=== PATIENT | female | born 1965 | race Asian ===

== ENCOUNTER 2019-03-16 09:35 | Emergency (ER) | payer BC ==
[2019-03-16 09:41] VITALS: BP 135/90
[2019-03-16] MEDS ORDERED: METOCLOPRAMIDE HCL INJ/PF 10 MG/2 ML SDV IV ONE (10:34)
[2019-03-16] MEDS ORDERED: FENTANYL CITRATE INJ/PF 100 MCG/2 ML AMPUL IV ONE (10:34)
[2019-03-16] MEDS ORDERED: DIPHENHYDRAMINE HCL 50 MG/ML VIAL IV ONE (10:34)
--- NOTE | 2019-03-16 10:39 | ER Document Report ---
ED Headache - General Chief Complaint: Headache Stated Complaint: HEADACHE Time Seen by Provider: 03/16/19 10:19 Information source: Patient Notes: 53 year old right handed female began with gradual onset right sided headache last week. It is periorbital and throbbing and associated with nausea without vomiting. Since yesterday it has moved over to left side of head. No fever. Gradual onset headache. No fever and no tick bite. No resp symptoms. Perimenopausal. Normally otc meds help but it has not today or in the past several days. TRAVEL OUTSIDE OF THE [place] IN LAST 30 DAYS: No - HPI Patient complains to provider of: Headache Onset: Last week Onset was: Gradual. denies: Abrupt, Thunderclap Timing: Worse Quality of pain: Achy, Pressure Severity: Severe Pain Level: 4 Context: denies: CO exposure, Head injury, Meningitis exposure, Tick bite Worse/persistent since: yesterday Exacerbated by: Light, Noise, Movement Similar symptoms previously: Yes - Related Data Allergies/Adverse Reactions: No Known Allergies Allergy (Verified 03/16/19 09:43) Past Medical History - Social History Smoking Status: Never Smoker Family History: Reviewed & Not Pertinent Patient has suicidal ideation: No Patient has homicidal ideation: No Neurological Medical History: Reports: Hx Migraine Review of Systems - Review of Systems Constitutional: No symptoms reported EENT: No symptoms reported Cardiovascular: No symptoms reported Respiratory: No symptoms reported Gastrointestinal: Nausea Genitourinary: No symptoms reported Female Genitourinary: No symptoms reported Musculoskeletal: No symptoms reported Skin: No symptoms reported Hematologic/Lymphatic: No symptoms reported Neurological/Psychological: See HPI, Headaches. denies: Weakness Physical Exam - Vital signs Vitals: Temp Pulse BP Pulse Ox 97.4 F 74 135/90 H 97 03/16/19 09:40 03/16/19 09:40 03/16/19 09:40 03/16/19 09:40 Interpretation: Normal - General General appearance: Appears well, Alert - HEENT Head: Normocephalic, Atraumatic Eyes: Normal Pupils: PERRL - Respiratory Respiratory status: No respiratory distress Chest status: Nontender Breath sounds: Normal Chest palpation: Normal - Cardiovascular Rhythm: Regular Heart sounds: Normal auscultation Murmur: No - Abdominal Inspection: Normal Distension: No distension Bowel sounds: Normal Tenderness: Nontender Organomegaly: No organomegaly - Back Back: Normal, Nontender - Extremities General upper extremity: Normal inspection, Nontender, Normal color, Normal ROM, Normal temperature General lower extremity: Normal inspection, Nontender, Normal color, Normal ROM, Normal temperature, Normal weight bearing. No: Igor's sign - Neurological Neuro grossly intact: Yes Cognition: Normal Orientation: AAOx4 [place] Coma Scale Eye Opening: Spontaneous [place] Coma Scale Verbal: Oriented [place] Coma Scale Motor: Obeys Commands [place] Coma Scale Total: 15 Speech: Normal Motor strength normal: LUE, RUE, LLE, RLE Sensory: Normal - Psychological Associated symptoms: Normal affect, Normal mood - Skin Skin Temperature: Warm Skin Moisture: Dry Skin Color: Normal Course - Re-evaluation Re-evalutation: 03/16/19 12:05 MDM 53 year old right handed female with likely menstral related headache - migraine type - with history of same. She feels better here and workup is reasuring. Discussed followup and she expressed understanding. - Vital Signs Vital signs: Temp Pulse Resp BP Pulse Ox 97.4 F 74 135/90 H 97 03/16/19 09:40 03/16/19 09:40 03/16/19 09:40 03/16/19 09:40 - Laboratory Result Diagrams: 03/16/19 10:19 03/16/19 10:19 Laboratory results interpreted by me: 03/16/19 03/16/19 10:19 10:46 RDW 16.1 H Urine Ascorbic Acid 20 H Discharge - Discharge Clinical Impression: Headache Qualifiers: Headache type: unspecified Headache chronicity pattern: acute headache Intractability: not intractable Qualified Code(s): R51 - Headache Condition: Good Disposition: HOME, SELF-CARE Instructions: Headache ([facility]) Additional Instructions: Take medicine as directed. See your doctor in follow up. Please return here for any problems or any concerns. Prescriptions: Butalb/Acetaminophen/Caffeine [Fioricet 50-300-40 mg Capsule] 1 cap PO Q4 PRN #1 5 cap PRN Reason:
[2019-03-16 10:52] LABS: ABSOLUTE EOSINOPHILS # (AUTO) 0.2 10^3/uL (0.0-0.6); ABSOLUTE MONOCYTES (AUTO) 0.2 10^3/uL (0.1-1.4); ABSOLUTE NEUT (AUTO) 2.6 10^3/uL (1.7-8.2); BASOPHILS % (AUTO) 0.8 % (0-2); EOSINOPHILS % (AUTO) 4.2 % (0-6); HEMATOCRIT 39.8 % (36.0-47.0); HEMOGLOBIN 13.2 g/dL (12.0-15.5); LYMPHOCYTES % (AUTO) 25.1 % (13-45); MEAN CORPUSCULAR HEMOGLOBIN 27.4 pg (27.0-33.4); MEAN CORPUSCULAR HGB CONC 33.3 g/dL (32.0-36.0); MEAN CORPUSCULAR VOLUME 83 fl (80-97); MONOCYTES % (AUTO) 5.9 % (3-13); PLATELET COUNT 244 10^3/uL (150-450); RED BLOOD COUNT 4.82 10^6/uL (3.72-5.28); RED CELL DISTRIBUTION WIDTH 16.1 % (11.5-14.0); TOTAL CELLS COUNTED % (AUTO) 100 %
[2019-03-16 11:05] LABS: ALBUMIN 4.6 g/dL (3.5-5.0); ALKALINE PHOSPHATASE 53 U/L (38-126); ANION GAP 11 (5-19); ASPARTATE AMINO TRANSFERASE 24 U/L (14-36); BILIRUBIN,TOTAL 1.2 mg/dL (0.2-1.3); BLOOD UREA NITROGEN 15 mg/dL (7-20); CALCIUM 9.5 mg/dL (8.4-10.2); CARBON DIOXIDE 26 mmol/L (22-30); CHLORIDE 104 mmol/L (98-107); GLUCOSE 83 mg/dL (75-110); POTASSIUM 4.3 mmol/L (3.6-5.0); TOTAL PROTEIN 8.1 g/dL (6.3-8.2)
[2019-03-16 11:15] LABS: APPEARANCE,URINE CLEAR; BILIRUBIN,URINE NEGATIVE (NEGATIVE); COLOR,URINE YELLOW; GLUCOSE, URINE NEGATIVE (NEGATIVE); KETONES,URINE NEGATIVE (NEGATIVE); LEUKOCYTE ESTERASE,URINE NEGATIVE (NEGATIVE); NITRITE,URINE NEGATIVE (NEGATIVE); PROTEIN,URINE NEGATIVE (NEGATIVE); URINE SPECIFIC GRAVITY 1.019; UROBILINOGEN,URINE NEGATIVE mg/dL (<2.0)
--- NOTE | 2019-03-16 11:43 | RADIOLOGY REPORT (SQ) ---
EXAM DESCRIPTION: CT HEAD WITHOUT COMPLETED DATE/TIME: 03/16/2019 11:10 am REASON FOR STUDY: headache COMPARISON: None. TECHNIQUE: Axial images acquired through the brain without intravenous contrast. Images reviewed wi th bone, brain and subdural windows. Additional sagittal and coronal reconstructions were generated. Images stored on PACS. All CT scanners at this facility use dose modulation, iterative reconstruction, and/or weight based d osing when appropriate to reduce radiation dose to as low as reasonably achievable (ALARA). [facility]: Dose Right [facility]: CareDose [facility]: Dose Right [facility]: Teradose 4D [facility]: Shoprocket RADIATION DOSE: CT Rad equipment meets quality standard of care and radiation dose reduction techniq ues were employed. CTDIvol: 53.2 mGy. DLP: 1070 mGy-cm. mGy. LIMITATIONS: None. FINDINGS: There is no acute intracranial hemorrhage, vascular territorial infarct, extra-axial fluid collection, mass, mass effect or midline shift. There is no effacement of cerebral sulci or basal s ubarachnoid cisterns. The john-white matter differentiation is preserved. The caliber the ventricle s is concordant with the degree of sulcation ; there is no hydrocephalus. There are dystrophic calcifications in the basal ganglia. There is no abnormality of the craniocervi sofia junction or sella turcica. The orbits and globes are intact. There is mild thickening of the mu cosal lining of the left maxillary sinus without an associated air-fluid level. There is no fracture of the calvarium. IMPRESSION: No acute intracranial abnormality. EVIDENCE OF ACUTE STROKE: NO. COMMENT: Quality ID # [id number]: Final reports with documentation of one or more dose reduction techniques (e.g., Automated exposure control, adjustment of the mA and/or kV according to patient size, use of iterative reconstruction technique) TECHNICAL DOCUMENTATION: JOB ID: [id number] [employer]- All Rights Reserved Reading location - IP/workstation name: [email or web address]
== END 2019-03-16 13:06 | disposition home or self-care (01) ==
LOC: ER 09:35
DX: R51 Headache (principal); R11.0 Nausea; Z86.69 Personal history of other diseases of the nervous system and sense organs
CPT/HCPCS: 36415; 85025; 81025; 80053; 81001; 70450; J1200; J3010; J2765

== ENCOUNTER 2019-06-24 15:40 | Emergency (ER) | payer SELFPAY ==
[2019-06-24] MEDS ORDERED: ONDANSETRON 4 MG TAB.RAPDIS PO ONE (16:32)
--- NOTE | 2019-06-24 16:33 | ER Document Report ---
ED Medical Screen (RME) - General Chief Complaint: Nausea/Vomiting Stated Complaint: VOMITING Time Seen by Provider: 06/24/19 16:29 Mode of Arrival: Ambulatory Information source: Patient Notes: 53-year-old relatively healthy female presents with complaints of vomiting since she woke up today. She reports she vomited a couple times and now her epigastric area is hurting. Also complains of body aches denies fever and diarrhea. Patient reports she is unable to hold any fluids down. Did not receive the flu vaccine this year. I have greeted and performed a rapid initial assessment of this patient. A comprehensive ED assessment and evaluation of the patient, analysis of test results and completion of the medical decision making process will be conducted by additional ED providers. TRAVEL OUTSIDE OF THE [place] IN LAST 30 DAYS: No - Related Data Allergies/Adverse Reactions: No Known Allergies Allergy (Verified 03/16/19 09:43) Past Medical History - Social History Frequency of alcohol use: None Drug Abuse: None Neurological Medical History: Reports: Hx Migraine Physical Exam - Vital signs Vitals: Temp Pulse Resp BP Pulse Ox 97.3 F 91 20 146/98 H 100 06/24/19 15:47 06/24/19 15:47 06/24/19 15:47 06/24/19 15:47 06/24/19 15:47 Course - Vital Signs Vital signs: Temp Pulse Resp BP Pulse Ox 97.3 F 91 20 146/98 H 100 06/24/19 15:47 06/24/19 15:47 06/24/19 15:47 06/24/19 15:47 06/24/19 15:47
[2019-06-24 17:16] LABS: ABSOLUTE EOSINOPHILS # (AUTO) 0.1 10^3/uL (0.0-0.6); ABSOLUTE LYMPHOCYTES (AUTO) 0.7 10^3/uL (0.5-4.7); ABSOLUTE MONOCYTES (AUTO) 0.3 10^3/uL (0.1-1.4); ABSOLUTE NEUT (AUTO) 6.4 10^3/uL (1.7-8.2); BASOPHILS % (AUTO) 0.6 % (0-2); EOSINOPHILS % (AUTO) 1.3 % (0-6); HEMATOCRIT 40.8 % (36.0-47.0); HEMOGLOBIN 13.7 g/dL (12.0-15.5); LYMPHOCYTES % (AUTO) 9.7 % (13-45); MEAN CORPUSCULAR HEMOGLOBIN 28.2 pg (27.0-33.4); MEAN CORPUSCULAR HGB CONC 33.6 g/dL (32.0-36.0); MEAN CORPUSCULAR VOLUME 84 fl (80-97); MONOCYTES % (AUTO) 4.3 % (3-13); PLATELET COUNT 239 10^3/uL (150-450); RED BLOOD COUNT 4.85 10^6/uL (3.72-5.28); RED CELL DISTRIBUTION WIDTH 14.2 % (11.5-14.0); SEGMENTED NEUTROPHILS % (AUTO) 84.1 % (42-78); TOTAL CELLS COUNTED % (AUTO) 100 %; WHITE BLOOD COUNT 7.6 10^3/uL (4.0-10.5)
[2019-06-24 17:26] LABS: APPEARANCE,URINE SLIGHTLY-CLOUDY; BILIRUBIN,URINE NEGATIVE (NEGATIVE); COLOR,URINE YELLOW; GLUCOSE, URINE NEGATIVE (NEGATIVE); KETONES,URINE NEGATIVE (NEGATIVE); LEUKOCYTE ESTERASE,URINE NEGATIVE (NEGATIVE); NITRITE,URINE NEGATIVE (NEGATIVE); PROTEIN,URINE 30 mg/dL (NEGATIVE); URINE SPECIFIC GRAVITY 1.014; UROBILINOGEN,URINE NEGATIVE mg/dL (<2.0)
[2019-06-24 17:35] LABS: A TYPE INFLUENZA AG NEGATIVE (NEGATIVE); B INFLUENZA AG NEGATIVE (NEGATIVE)
[2019-06-24 17:38] LABS: ALBUMIN 4.2 g/dL (3.5-5.0); ALKALINE PHOSPHATASE 65 U/L (38-126); ANION GAP 10 (5-19); ASPARTATE AMINO TRANSFERASE 27 U/L (14-36); BILIRUBIN,DIRECT 0.1 mg/dL (0.0-0.4); BLOOD UREA NITROGEN 9 mg/dL (7-20); CALCIUM 9.4 mg/dL (8.4-10.2); CARBON DIOXIDE 26 mmol/L (22-30); CHLORIDE 103 mmol/L (98-107); GLUCOSE 92 mg/dL (75-110); POTASSIUM 4.4 mmol/L (3.6-5.0); TOTAL PROTEIN 7.8 g/dL (6.3-8.2)
[2019-06-24] MEDS ORDERED: METHYLPREDNISOLONE INJ 125 MG/2 ML SDV IM ONE (19:34)
[2019-06-24] MEDS ORDERED: ONDANSETRON ODT 4 MG TAB (6 TAB/ER DISP) PO PRN (19:41)
--- NOTE | 2019-06-24 19:44 | ER Document Report ---
ED General - General Chief Complaint: Nausea/Vomiting Stated Complaint: VOMITING Time Seen by Provider: 06/24/19 16:29 Mode of Arrival: Ambulatory TRAVEL OUTSIDE OF THE [place] IN LAST 30 DAYS: No - HPI Notes: Patient is a 53-year-old female who presents to the emergency department for evaluation. She started having emesis today. She states she had at least 9-10 episodes of emesis. It was nonbloody, nonbilious. Still urinating. Normal bowel movements. She did have some epigastric pain earlier but now it seems to have resolved. She also states she has a rash on her arms and legs. It is itching. She used a different lotion, thinks that might be the cause. She has been trying Benadryl, which she states helps with her itching, but the rash persists. No fevers to her knowledge. - Related Data Allergies/Adverse Reactions: No Known Allergies Allergy (Verified 03/16/19 09:43) Home Medications: None Past Medical History - General Information source: Patient - Social History Smoking Status: Never Smoker Frequency of alcohol use: None Drug Abuse: None Family History: Reviewed & Not Pertinent Patient has suicidal ideation: No Patient has homicidal ideation: No Neurological Medical History: Reports: Hx Migraine Past Surgical History: Reports: Hx Nose Surgery Review of Systems - Review of Systems Constitutional: No symptoms reported EENT: No symptoms reported Cardiovascular: No symptoms reported Respiratory: No symptoms reported Gastrointestinal: See HPI Genitourinary: No symptoms reported Musculoskeletal: No symptoms reported Skin: See HPI Neurological/Psychological: No symptoms reported Physical Exam - Vital signs Vitals: Temp Pulse Resp BP Pulse Ox 97.3 F 91 20 146/98 H 100 06/24/19 15:47 06/24/19 15:47 06/24/19 15:47 06/24/19 15:47 06/24/19 15:47 - Notes Notes: Vital signs reviewed, please refer to chart. Head is normocephalic, atraumatic. Pupils equal round, reactive to light. Neck is supple without meningismus. Heart is regular rate and rhythm. Lungs are clear to auscultation bilaterally. Abdomen is soft, nontender, normoactive bowel sounds throughout. Extremities without cyanosis, clubbing. Posterior calves are nontender. Peripheral pulses are equal. Skin is warm and dry. Maculopapular rash on the bilateral 4 extremities, consistent with contact dermatitis. No signs of secondary infection, but there are signs of excoriation. Patient is awake, alert, neurological exam is nonfocal. Course - Re-evaluation Re-evalutation: 06/24/19 19:38 Patient presents emergency department for evaluation of vomiting and rash. Her rash is most consistent with a contact dermatitis. She has discontinued the offending agent. She asks for a shot to help her with her symptoms. She is administered Solu-Medrol IM. With the Zofran she has not had any further vomiting here. Her labs failed to reveal any significant abnormality. She is stable. I will send her home with a prednisone taper and a sixpack of Zofran. She is to advance her diet slowly, follow-up with primary care, return to the ED with worsening new concerning symptoms of any sort. - Vital Signs Vital signs: Temp Pulse Resp BP Pulse Ox 97.3 F 91 20 146/98 H 100 06/24/19 15:47 06/24/19 15:47 06/24/19 15:47 06/24/19 15:47 06/24/19 15:47 - Laboratory Result Diagrams: 06/24/19 16:58 06/24/19 16:58 Laboratory results interpreted by me: 06/24/19 06/24/19 16:58 16:58 RDW 14.2 H Lymph % (Auto) 9.7 L Seg Neutrophils % 84.1 H Urine Protein 30 H Discharge - Discharge Clinical Impression: Nausea and vomiting Qualifiers: Vomiting type: unspecified Vomiting Intractability: non-intractable Qualified Code(s): R11.2 - Nausea with vomiting, unspecified Contact dermatitis Qualifiers: Contact dermatitis type: allergic Contact dermatitis trigger: cosmetics Qual ified Code(s): L23.2 - Allergic contact dermatitis due to cosmetics Condition: Stable Disposition: HOME, SELF-CARE Instructions: Vomiting ([facility]), Contact Dermatitis ([facility]) Additional Instructions: Take medication as prescribed. Continue Benadryl as needed for itching, but take all the steroids as directed, starting tomorrow. Zofran as needed for nausea. Follow-up with primary care next week. Return to the emergency department with worsening or new concerning symptoms of any sort.
[2019-06-24 20:17] VITALS: BP 137/93
== END 2019-06-24 20:17 | disposition home or self-care (01) ==
LOC: ER 15:40
DX: R11.2 Nausea with vomiting, unspecified (principal); L23.2 Allergic contact dermatitis due to cosmetics
CPT/HCPCS: 99284; 96372; 36415; 85025; 80053; 81001; 87804; S0119; J2930